=== PATIENT | female | born 1955 | race Caucasian/White ===

== ENCOUNTER 2016-08-02 11:04 | Emergency (ER) | payer MEDICARE, OTHER ==
[2016-08-02 11:24] VITALS: RESP 18
[2016-08-02] MEDS ORDERED: DIPH,PERTUS(ACELL)TETVAC-LF 0.5 ML VIAL IM ONE (11:27)
--- NOTE | 2016-08-02 11:44 | ED ---
General Adult HPI - General Chief complaint: Head Injury Stated complaint: HEAD INJURY FROM FALL Time Seen by Provider: 08/02/16 11:22 Source: patient, RN notes reviewed Mode of arrival: ambulatory Limitations: no limitations - History of Present Illness Initial comments: Patient's a 61-year-old female who presents emergency room today with chief complaint of laceration to the left side of her forehead and a fall that occurred just prior to arrival. She does admit that she was walking along did not see a metal pole and the cement that was cut down she tripped falling forward grabbing a chain fence with her left hand pushing her shoulder back and then hitting her head on this fence causing laceration. Patient does admit some tenderness to the left shoulder area that is worse with abduction and extension. She states that she has a cut to the left side of her forehead. She denies any loss conscious. Some mild headache. Does admit some blurry vision. Patient states unsure of her tetanus status. Denies any other complaints or symptoms. Patient denies any recent fever, chills, shortness of breath, chest pain, back pain, abdominal pain, nausea or vomiting, numbness or tingling, dysuria or hematuria, constipation or diarrhea, visual changes, or any other complaints. - Related Data Home Medications Medication Instructions Recorded Confirmed Sertraline [Zoloft] 200 mg PO DAILY 08/02/16 08/02/16 Vitamin C/Biotin [Hair, Skin and 1 tab PO DAILY 08/02/16 08/02/16 Nails] Allergies Allergy/AdvReac Type Severity Reaction Status Date / Time codeine Allergy Rash/Hives Verified 08/02/16 11:32 Review of Systems ROS Statement: Those systems with pertinent positive or pertinent negative responses have been documented in the HPI. ROS Other: All systems not noted in ROS Statement are negative. Past Medical History Past Medical History: No Reported History History of Any Multi-Drug Resistant Organisms: None Reported Past Surgical History: Cholecystectomy Additional Past Surgical History / Comment(s): Neck surgary, left shoulder, right knee, hysterectomy, bladder prolapse surgery. Past Psychological History: Anxiety, Depression Smoking Status: Current every day smoker Past Alcohol Use History: None Reported Past Drug Use History: None Reported General Exam - General Exam Comments Initial Comments: General: The patient is awake and alert, in no distress, and does not appear acutely ill. Eye: Pupils are equal, round and reactive to light, extra-ocular movements are intact. No nystagmus. There is normal conjunctiva bilaterally. No signs of icterus. Ears, nose, mouth and throat: There are moist mucous membranes and no oral lesions. Neck: The neck is supple, there is no tenderness or JVD. Cardiovascular: There is a regular rate and rhythm. No murmur, rub or gallop is appreciated. Respiratory: Lungs are clear to auscultation, respirations are non-labored, breath sounds are equal. No wheezes, stridor, rales, or rhonchi. Musculoskeletal: Normal appearance of the left shoulder. Shows good range of motion. No specific bony tenderness on exam to the left shoulder. No tenderness to cervical, thoracic, lumbar spine. No other tenderness on exam. Strength 5/5. Sensation intact. Pulses equal bilaterally 2+. Neurological: A&O x 3. CN II-XII intact, There are no obvious motor or sensory deficits. Coordination appears grossly intact. Speech is normal. Skin: Patient does have laceration to the temp oral area on the left Psychiatric: Cooperative, appropriate mood & affect, normal judgment. Limitations: no limitations Course Vital Signs 08/02/16 11:20 Temperature 98.7 F Pulse Rate 85 Respiratory 18 Rate Blood Pressure 143/77 O2 Sat by Pulse 98 Oximetry Procedures - Procedures Initial comment: Patient does have 1 cm linear laceration just lateral to the left eye. No active bleeding. No deep tissue involvement. Wound edges approximated. Area was cleaned with saline. Area closed with Dermabond. Patient tolerated well. Medical Decision Making - Medical Decision Making X-rays reviewed and unremarkable. Patient's CAT scan negative for any acute abnormalities. Patient's laceration cleaned here in the emergency room closed with Dermabond. Patient will be discharged home. Advised follow-up family doctor and orthopedics as needed. Advised return to emergency room if any symptoms increase worsen or for any concerns. Disposition Clinical Impression: Fall, Laceration, Concussion, Shoulder injury Disposition: HOME SELF-CARE Condition: Good Instructions: Concussion (ED) Additional Instructions: Please follow-up the family doctor and orthopedic doctor symptoms persist for further evaluation. Please return to emergency room if any symptoms increase or worsen or for any other concerns. Time of Disposition: 12:27
--- NOTE | 2016-08-02 11:57 | CT ---
EXAMINATION TYPE: CT brain wo con DATE OF EXAM: 08/02/2016 11:52 AM COMPARISON: NONE HISTORY: Fall today. Left sided injury CT DLP: 1162.[address] of the brain was performed. The ventricles, basal cisterns and sulci overlying the cerebral convexities demonstrate mild enlargem ent. There is no evidence for intracranial hemorrhage or sulcal effacement. There is decreased attenuation about the periventricular white matter and deep white matter of both c erebral hemispheres, compatible with chronic small vessel ischemia. Differential diagnosis does inclu de demyelination. No mass effects are seen.No midline shift. Osseous calvarium is intact. If symptoms persist consider MRI. IMPRESSION: 1. Age related atrophic and chronic small vessel ischemic change without acute intracranial process s een at this time.
[2016-08-02] MEDS ORDERED: TOPICAL SKIN ADHESIVE 1 EACH AMP TOPICAL ONE (12:17)
--- NOTE | 2016-08-02 12:19 | XR ---
EXAMINATION TYPE: XR shoulder complete LT DATE OF EXAM: 08/02/2016 12:11 PM CLINICAL HISTORY: Fall injury with left shoulder pain. TECHNIQUE: Three views of the left shoulder are obtained. COMPARISON: None. FINDINGS: There is no acute fracture/dislocation evident in the left shoulder. There is spurring and joint space loss acromioclavicular joint. Glenohumeral joint is maintained. The visualized ribs are intact and unremarkable. IMPRESSION: There is no acute fracture or dislocation in the left shoulder.
[2016-08-02 13:04] VITALS: BP 136/78; PULSE 78; TEMP 97
== END 2016-08-02 13:03 | disposition home or self-care (01) ==
LOC: EC 11:04
DX: S06.0X9A Concussion with loss of consciousness of unspecified duration, initial encounter (principal); S01.81XA Laceration without foreign body of other part of head, initial encounter; S49.92XA Unspecified injury of left shoulder and upper arm, initial encounter; W01.198A Fall on same level from slipping, tripping and stumbling with subsequent striking against other object, initial encounter; Y93.01 Activity, walking, marching and hiking; Z79.899 Other long term (current) drug therapy; F41.9 Anxiety disorder, unspecified; F32.9 Major depressive disorder, single episode, unspecified; F17.200 Nicotine dependence, unspecified, uncomplicated; Z88.5 Allergy status to narcotic agent; Z23 Encounter for immunization
CPT/HCPCS: 12011; 70450; 90471; 90715; 99284

== ENCOUNTER → 2017-03-17 | Outpatient (CLI) | payer MEDICARE, OTHER ==
--- NOTE | 2017-03-18 13:32 | MM ---
Reason for exam: screening (asymptomatic). Last mammogram was performed 3 years and 6 months ago. History: Patient is postmenopausal. Physical Findings: A clinical breast exam by your physician is recommended on an annual basis and results should be correlated with mammographic findings. MG Screening Mammo w CAD Bilateral CC and MLO view(s) were taken. Prior study comparison: August 31, 2013, bilateral digital screening mammo w/CAD. November 08, 2004, bilateral screening mammogram. The breast tissue is almost entirely fat. No significant changes when compared with prior studies. ASSESSMENT: Benign, BI-RAD 2 RECOMMENDATION: Routine screening mammogram of both breasts in 1 year.
== END | disposition home or self-care (01) ==
LOC: RADMAMWWP 09:55
PROVIDERS: ATTEND Family Medicine
DX: Z12.31 Encounter for screening mammogram for malignant neoplasm of breast (principal)

== ENCOUNTER 2021-02-11 13:17 | Emergency (ER) | payer MEDICARE, OTHER ==
[2021-02-11 13:31] VITALS: BP 113/58; PULSE 89; RESP 20; TEMP 98.3
--- NOTE | 2021-02-11 14:18 | XR ---
EXAMINATION TYPE: XR wrist complete RT DATE OF EXAM: 02/11/2021 COMPARISON: NONE HISTORY: Pain TECHNIQUE: 4 views FINDINGS: There is some spurring at the first carpometacarpal joint. Radiocarpal joint is intact. Met acarpals are intact. There is no evidence of a fracture. 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 No fracture.
--- NOTE | 2021-02-11 14:26 | ED ---
Upper Extremity HPI - General Chief Complaint: Extremity Injury, Upper Stated Complaint: rt wrist injury Time Seen by Provider: 02/11/21 13:32 Source: patient Mode of arrival: ambulatory Limitations: no limitations - History of Present Illness Initial Comments: This a 65-year-old female presents emergency department chief complaint of wrist pain. Patient states that she was pressing herself up after getting off the couch and states that she felt a pop. Patient states her some bruising pain from her thumb radiating up her arm. No associated weakness. - Related Data Home Medications Medication Instructions Recorded Confirmed Sertraline [Zoloft] 200 mg PO DAILY 08/02/16 08/02/16 Vitamin C/Biotin [Hair, Skin and 1 tab PO DAILY 08/02/16 08/02/16 Nails] Previous Rx's Medication Instructions Recorded Ibuprofen [Motrin] 600 mg PO Q8HR PRN #20 tab 02/11/21 Allergies Allergy/AdvReac Type Severity Reaction Status Date / Time codeine Allergy Rash/Hives Verified 02/11/21 13:31 Review of Systems ROS Statement: Those systems with pertinent positive or pertinent negative responses have been documented in the HPI. ROS Other: All systems not noted in ROS Statement are negative. Past Medical History Past Medical History: No Reported History History of Any Multi-Drug Resistant Organisms: None Reported Past Surgical History: Cholecystectomy Additional Past Surgical History / Comment(s): Neck surgary, left shoulder, right knee, hysterectomy, bladder prolapse surgery. Past Psychological History: Anxiety, Depression Smoking Status: Current every day smoker Past Alcohol Use History: None Reported Past Drug Use History: None Reported General Exam Limitations: no limitations General appearance: alert, in no apparent distress Head exam: Present: atraumatic, normocephalic, normal inspection Respiratory exam: Present: normal lung sounds bilaterally. Absent: respiratory distress, wheezes, rales, rhonchi, stridor Cardiovascular Exam: Present: regular rate, normal rhythm, normal heart sounds. Absent: systolic murmur, diastolic murmur, rubs, gallop, clicks Extremities exam: Present: other (No swelling no other small area of ecchymosis over her wrist pain with range of motion no snuffbox tenderness. Radial pulses equal bilaterally Refill less than 2 seconds) Course Vital Signs 02/11/21 13:28 Temperature 98.3 F Pulse Rate 89 Respiratory 20 Rate Blood Pressure 113/58 O2 Sat by Pulse 99 Oximetry Medical Decision Making - Medical Decision Making X-rays negative for acute fracture. Patient is right wrist sprain we discharged in stable condition with follow-up with orthopedics if no improvement. Disposition Clinical Impression: Right wrist sprain Disposition: HOME SELF-CARE Condition: Stable Instructions (If sedation given, give patient instructions): Wrist Injury (ED) Additional Instructions: Please return to the Emergency Department if symptoms worsen or any other concerns. Prescriptions: Ibuprofen [Motrin] 600 mg PO Q8HR PRN #20 tab PRN Reason: Pain Is patient prescribed a controlled substance at d/c from ED?: No Referrals: Nakita Quintero DO [Primary Care Provider] - 1-2 days Deo Rahman MD [STAFF PHYSICIAN] - 1-2 days Time of Disposition: 14:26
[2021-02-11] MEDS ORDERED: traMADol 50 MG STARTER PACK 3 TAB BTL PO STA (14:27)
[2021-02-11] MEDS ORDERED: HYDROcodone/APAP 5-325MG 1 EACH TAB PO STA (14:27)
== END 2021-02-11 14:32 | disposition home or self-care (01) ==
LOC: EC 13:17
DX: S63.501A Unspecified sprain of right wrist, initial encounter (principal); F41.9 Anxiety disorder, unspecified; F32.9 Major depressive disorder, single episode, unspecified; F17.200 Nicotine dependence, unspecified, uncomplicated; Z88.6 Allergy status to analgesic agent; Z90.49 Acquired absence of other specified parts of digestive tract; Z90.710 Acquired absence of both cervix and uterus; X50.0XXA Overexertion from strenuous movement or load, initial encounter
CPT/HCPCS: 99283

== ENCOUNTER 2021-11-23 16:13 | Emergency (ER) | payer MEDICARE, OTHER ==
[2021-11-23 17:11] VITALS: TEMP 97
--- NOTE | 2021-11-23 17:42 | XR ---
EXAMINATION TYPE: XR lumbar spine 2 or 3V DATE OF EXAM: 11/23/2021 COMPARISON: CT scan 06/09/2015 HISTORY: Back pain TECHNIQUE: Reviews FINDINGS: Lumbar vertebra have normal alignment. No compression fracture. The posterior elements are intact. No significant disc space narrowing. Sacroiliac joints are intact. There are clips from kenzie cystectomy. IMPRESSION: Mild spur formation. No fracture. No change compared to old exam. There is transitional L5 vertebra.
[2021-11-23] MEDS ORDERED: KETOROLAC 15 MG/ML 1 ML VIAL IM STA (21:05)
[2021-11-23 21:15] VITALS: BP 121/54; PULSE 74; RESP 15
[2021-11-23] MEDS ORDERED: CYCLOBENZAPRINE 10MG STARTER 3 TAB BTL PO STA (21:31)
[2021-11-23] MEDS ORDERED: IBUPROFEN 600 MG STARTER PACK 4 TAB BTL PO STA (21:31)
--- NOTE | 2021-11-23 21:40 | ED ---
Fall HPI - General Chief Complaint: Fall Stated Complaint: Fall 11/14 Pain L side Time Seen by Provider: 11/23/21 20:57 Source: patient, RN notes reviewed Mode of arrival: ambulatory - History of Present Illness Initial Comments: This is a 66-year-old female who presents to the emergency department for low back pain. States that 9 days ago, her dog ran up behind her and pushed her, causing her to fall and land on her right side. Denies hitting her head or any loss of consciousness. She denies any symptoms initially following the event, however when she woke up the next morning she had pain in her lower back. The pain is now primarily left-sided. States that she has been taking 200 mg of ibuprofen 2-3 times a day, with little to no relief. A couple of days after the event, she started doing a lot of work around the house, hoping that if she did that she would avoid getting "tight". Believes that she ended up making herself worse, given that the pain has continued. Denies any loss of bowel or bladder control or saddle anesthesia. Denies any fevers, chills, sore throat, cough, dyspnea, chest pain, palpitations, abdominal pain, nausea, vomiting, diarrhea, or headaches. MD Complaint: fall Onset/Timin -: days(s) Fall From: standing Place Fall Occurred: home Loss of Consciousness: none Prolonged Down Time?: no Symptoms Prior to Fall: none Location: back Context: other (pushed by dog) - Related Data Home Medications Medication Instructions Recorded Confirmed Sertraline [Zoloft] 200 mg PO DAILY 08/02/16 08/02/16 Vitamin C/Biotin [Hair, Skin and 1 tab PO DAILY 08/02/16 08/02/16 Nails] Previous Rx's Medication Instructions Recorded Ibuprofen [Motrin] 600 mg PO Q8HR PRN #20 tab 02/11/21 Lidocaine 5% Oint [Xylocaine 5% 1 applic TOPICAL TID #50 gm 11/23/21 Oint] Metaxalone [Skelaxin] 400 mg PO TID PRN #30 tablet 11/23/21 Naproxen [EC-Naproxen] 500 mg PO BID PRN #20 tab 11/23/21 Allergies Allergy/AdvReac Type Severity Reaction Status Date / Time codeine Allergy Rash/Hives Verified 11/23/21 17:11 Review of Systems ROS Statement: Those systems with pertinent positive or pertinent negative responses have been documented in the HPI. ROS Other: All systems not noted in ROS Statement are negative. Past Medical History Past Medical History: No Reported History History of Any Multi-Drug Resistant Organisms: None Reported Past Surgical History: Cholecystectomy Additional Past Surgical History / Comment(s): Neck surgary, left shoulder, right knee, hysterectomy, bladder prolapse surgery. Past Psychological History: Anxiety, Depression Smoking Status: Current every day smoker Past Alcohol Use History: None Reported Past Drug Use History: None Reported General Exam Limitations: no limitations General appearance: alert, in no apparent distress Head exam: Present: atraumatic, normocephalic, normal inspection Respiratory exam: Present: normal lung sounds bilaterally. Absent: respiratory distress, wheezes, rales, rhonchi, stridor Cardiovascular Exam: Present: regular rate, normal rhythm, normal heart sounds. Absent: systolic murmur, diastolic murmur, rubs, gallop, clicks Back exam: Present: other (Tender to palpation of the lumbar spine around L4- L5.) Neurological exam: Present: alert, oriented X3, CN II-XII intact, normal gait Psychiatric exam: Present: normal affect, normal mood Skin exam: Present: warm, dry, intact, normal color. Absent: rash Course Vital Signs 11/23/21 11/23/21 17:07 21:13 Temperature 97 F L Pulse Rate 86 74 Respiratory 18 15 Rate Blood Pressure 108/64 121/54 O2 Sat by Pulse 96 Oximetry Medical Decision Making - Medical Decision Making This is a 66-year-old female who presents to the emergency department for low back pain. X-rays revealed no acute abnormalities and she has no neurological deficits. She is noted to have a transitional L5 vertebrae, which may have also become inflamed during the fall, contributing to her symptoms. Advised that the 200 mg of ibuprofen is likely not strong enough for her symptoms. Prescription for naproxen, Skelaxin, and lidocaine patches sent to her pharmacy. Given that the pharmacies are currently closed, she was given starter packs for ibuprofen and Flexeril in the emergency department, and she was also given a dose of IM Toradol in the emergency department. Instructed her to avoid taking more than one anti-inflammatory and muscle relaxant at a time. When she is able to lease picker the prescriptions, she should switch over to the naproxen and Skelaxin. She is also advised to take the Skelaxin and Flexeril at night until she knows how they effect her, as they may be sedating. At this point in her injury, she is advised to apply heat as opposed to ice. Instructed her to avoid continuing with any strenuous activity and to give her back time to rest. Return precautions reviewed in depth, the patient is instructed to return to the emergency department with any new, worsening, or concerning symptoms. Patient verbalized understanding. This case was discussed in detail with the attending ED physician. Presentation, findings, and treatment plan discussed in detail as well. - Radiology Data Radiology results: report reviewed, image reviewed Disposition Clinical Impression: Lower back pain Disposition: HOME SELF-CARE Instructions (If sedation given, give patient instructions): Low Back Strain (ED), Lower Back Exercises (ED) Additional Instructions: Return to the emergency department with any new, worsening, or concerning symptoms. Take the Skelaxin at night until you know how it affects you, as it may be sedating. Apply heat and take the naproxen twice daily for pain, do not take this with any other anti-inflammatory medication, such as ibuprofen. You may use ibuprofen instead of this, if you find it to be more effective. Use the lidocaine cream up to 3 times daily as needed for pain as well. Prescriptions: Naproxen [EC-Naproxen] 500 mg PO BID PRN #20 tab PRN Reason: Pain Metaxalone [Skelaxin] 400 mg PO TID PRN #30 tablet PRN Reason: Pain Lidocaine 5% Oint [Xylocaine 5% Oint] 1 applic TOPICAL TID #50 gm Is patient prescribed a controlled substance at d/c from ED?: No Referrals: Tushar Hernandes MD [Primary Care Provider] - 1-2 days
== END 2021-11-23 22:05 | disposition home or self-care (01) ==
LOC: EC 16:13
DX: M54.50 Low back pain, unspecified (principal); F17.200 Nicotine dependence, unspecified, uncomplicated; Z88.5 Allergy status to narcotic agent; W19.XXXA Unspecified fall, initial encounter; Y92.009 Unspecified place in unspecified non-institutional (private) residence as the place of occurrence of the external cause
CPT/HCPCS: 72100; 99284; 96372; J1885

== ENCOUNTER → 2024-11-02 | Outpatient (CLI) | payer MEDICARE, OTHER ==
--- NOTE | 2024-11-02 11:48 | CTL ---
EXAMINATION TYPE: CT Low Dose Lung DATE OF EXAM: 11/02/2024 9:50 AM COMPARISON: None. CLINICAL INDICATION: Female, 69 years old with history of Z12.2 LUNG CA SCR F17.210 CURRENT SMOKER, c urrent smoker 1 pack a day for 55+ years, History of tobacco use. TECHNIQUE: Low dose computed tomography scan was performed through the chest at 1 mm thick sections a nd reconstructed images in multiple planes at 1 mm and [address] DLP: 83.1 mGycm, CT CTDI: 2.2 mGy, Automated exposure control for dose reduction was used. CT DIAGNOSTIC QUALITY: Satisfactory FINDINGS: Heart is normal size without pericardial effusion. Proximal LAD coronary artery calcifications are pr esent. Scattered mild atherosclerotic calcifications at the arch and descending thoracic aorta with conventi onal arch vessel branching anatomy. Scattered nonenlarged mediastinal lymph nodes measuring up to 8 mm left tracheobronchial angle. No th oracic lymphadenopathy by CT size criteria. Scattered mild mosaic attenuation. Mild emphysematous change. Mild to moderate diffuse bronchial wall thickening. No consolidation or pleural effusion. 3 mm left basilar pulmonary nodule, axial image 232. 4 mm anterior basilar left lower lobe pulmonary nodule, axial image 202. No suspicious pulmonary nodules seen. There may be a tiny hiatal hernia. Suspect some mild underlying fatty infiltration of the liver. 6 mm hypodensity anterior mid liver probably underlying cyst. Cholecystectomy clips. Mild diffuse low-den sity thickening of the adrenal glands without discrete nodularity. Bones: DISH lower thoracic spine. IMPRESSION: 1. Lung RADS 2, benign. A couple tiny pulmonary nodules measuring up to 4 mm on baseline screening. 2. COPD with mild emphysema. Recommend smoking cessation. CT LUNG RAD AND CT CHEST RECOMMENDATION: Lung-Rad 2 Benign Appearance or Behavior: Continue annual sc reening with LDCT in 12 months. S Modifier (other clinically significant findings): None [facility], , 11/02/2024 11:46 AM
== END | disposition home or self-care (01) ==
LOC: RADCTMAIN 09:29
PROVIDERS: ATTEND Family Medicine
DX: Z12.2 Encounter for screening for malignant neoplasm of respiratory organs (principal); F17.210 Nicotine dependence, cigarettes, uncomplicated; J44.9 Chronic obstructive pulmonary disease, unspecified; J43.9 Emphysema, unspecified; R91.8 Other nonspecific abnormal finding of lung field
CPT/HCPCS: 71271